=== PATIENT | female | born 1985 | race Caucasian/White ===

== ENCOUNTER 2017-02-10 21:08 | Emergency (ER) | payer MEDICAID ==
[2017-02-10] MEDS ORDERED: TMP/SMZ 160MG/800MG TAB PO ONE (21:32)
--- NOTE | 2017-02-10 21:34 | Emergency Department Record ---
History of Present Illness - General Chief complaint: Bite Insect/other Stated complaint: POSS TICK BITE Time Seen by Provider: 02/10/17 21:26 Source: Patient Mode of Arrival: Ambulatory - History of Present Illness Initial comments: Patient states she felt an itch on her lateral right thigh yesterday afternoon after work. Today she noticed also a red area on the right anterior thigh and soreness in the inguinal region. She denies f,c,n,v,d,ap, joint or muscle aches. She is unsure of her tetanus status. MD complaint: Insect bite/sting Onset/Timin -: Days(s) Patient Tetanus UTD (within 5 yrs): (unsure) Location: RLE Severity scale (1-10): 4 Consistency: Constant Improves with: None Worsens with: Movement Associated symptoms: Denies other symptoms Treatments Prior to Arrival: None - Related Data Home Medications Medication Instructions Recorded Confirmed Last Taken Norethindrone AC-Eth Estradiol 1 tab PO DAILY 02/10/17 02/10/17 02/09/17 [Norethind-Eth Estrad 1-0.02 mg] Previous Rx's Medication Instructions Recorded Sulfamethoxazole/Trimethoprim 1 each PO BID #19 tablet 02/10/17 [Bactrim Ds Tablet] Allergies Allergy/AdvReac Type Severity Reaction Status Date / Time cephalexin monohydrate Allergy HIVES Verified 03/11/15 11:27 [From Keflex] hydrocodone Allergy ITCHING Verified 02/10/17 21:14 amoxicillin AdvReac DIARRHEA Verified 03/11/15 11:27 penicillin AdvReac DIARRHEA Verified 03/11/15 11:27 Travel Screening - Travel/Exposure Within Last 30 Days Have you traveled within the last 30 days?: No - Travel Symptoms Symptom Screening: None Review of Systems Reviewed: No additional complaints except as noted below Constitutional: Reports: As per HPI. Denies: Chills, Fever, Malaise, Night sweats, Weakness, Weight change Eyes: Reports: As per HPI. Denies: Eye discharge, Eye pain, Photophobia, Vision change ENT: Reports: As per HPI. Denies: Congestion, Dental pain, Ear pain, Epistaxis , Hearing loss, Throat pain Respiratory: Reports: As per HPI. Denies: Cough, Dyspnea, Hemoptysis, Stridor, Wheezes Cardiovascular: Reports: As per HPI. Denies: Arrhythmia, Chest pain, Dyspnea on exertion, Edema, Murmurs, Orthopnea, Palpitations, Paroxysmal nocturnal dyspnea, Rheumatic Fever, Syncope Endocrine: Reports: As per HPI. Denies: Fatigue, Heat or cold intolerance, Polydipsia, Polyuria Gastrointestinal: Reports: As per HPI. Denies: Abdominal pain, Constipation, Diarrhea, Hematemesis, Hematochezia, Melena, Nausea, Vomiting Genitourinary: Reports: As per HPI. Denies: Abnormal menses, Discharge, Dyspareunia, Dysuria, Frequency, Hematuria, Incontinence, Retention, Urgency Musculoskeletal: Reports: As per HPI. Denies: Arthralgia, Back pain, Gout, Joint swelling, Myalgia, Neck pain Skin: Reports: As per HPI. Denies: Bruising, Change in color, Change in hair/ nails, Lesions, Pruritus, Rash Neurological: Reports: As per HPI. Denies: Abnormal gait, Confusion, Headache, Numbness, Paresthesias, Seizure, Tingling, Tremors, Vertigo, Weakness Psychiatric: Reports: As per HPI. Denies: Anxiety, Auditory hallucinations, Depression, Homicidal thoughts, Suicidal thoughts, Visual hallucinations Hematological/Lymphatic: Reports: As per HPI. Denies: Anemia, Blood Clots, Easy bleeding, Easy bruising, Swollen glands Past Medical History - SOCIAL HISTORY Smoking Status: Current every day smoker - RESPIRATORY Hx Respiratory Disorders: No - CARDIOVASCULAR Hx Cardio Disorders: No - NEURO Hx Neuro Disorders: No - GI Hx GI Disorders: No - Hx Genitourinary Disorders: No - ENDOCRINE Hx Endocrine Disorders: No - MUSCULOSKELETAL Hx Musculoskeletal Disorders: No - PSYCH Hx Psych Problems: Yes Hx Anxiety: Yes - HEMATOLOGY/ONCOLOGY Hx Hematology/Oncology Disorders: No Family Medical History Any Significant Family History?: Yes Hx Cancer: Grandparents *Diabetes Comment: w/aunts & uncles Physical Exam - General General Appearance: Alert, Oriented x3, Cooperative, No acute distress - Head Head exam: Normal inspection - Eye Eye exam: Normal appearance, PERRL, EOMI. negative: Conjunctival injection, Nystagmus Pupils: Normal accommodation - ENT ENT exam: Normal exam, Mucous membranes moist, Normal external ear exam, Normal orophraynx, TM's normal bilaterally Ear exam: Normal external inspection. negative: External canal tenderness Nasal Exam: Normal inspection. negative: Discharge, Sinus tenderness Mouth exam: Normal external inspection, Tongue normal Teeth exam: Normal inspection. negative: Dental caries Throat exam: Normal inspection. negative: Tonsillar erythema, Tonsillar exudate - Neck Neck exam: Normal inspection, Full ROM. negative: Lymphadenopathy, Meningismus , Tenderness - Respiratory Respiratory exam: Normal lung sounds bilaterally. negative: Chest wall tenderness, Respiratory distress - Cardiovascular Cardiovascular Exam: Regular rate, Normal rhythm, Normal heart sounds - GI/Abdominal GI/Abdominal exam: Soft, Normal bowel sounds, Other (right inguinal tender lymphadenopathy; anterior thigh with beginning erythema which blanches; lateral right thigh with bite site trwo punctures, local induration with no fluctuance and surrounding erythema circumferentially approximately 6" diameter; edges marked with pen.). negative: Tenderness - Rectal Rectal exam: Deferred - exam: Deferred - Extremities Extremities exam: Normal inspection, Full ROM, Normal capillary refill. negative: Calf tenderness, Pedal edema - Back Back exam: Reports: Normal inspection, Full ROM. Denies: Muscle spasm, Rash noted, Tenderness - Neurological Neurological exam: Alert, Normal gait, Oriented X3, Reflexes normal - Psychiatric Psychiatric exam: Normal affect, Normal mood - Skin Skin exam: Dry, Intact, Normal color, Warm Course Vital Signs 02/10/17 21:14 Temperature 98.9 F Pulse Rate [ 96 H Pulse Ox Probe] Respiratory 16 Rate Blood Pressure 118/94 [Left Arm] Pulse Ox 98 - Reevaluation(s) Reevaluation #1: Patient was informed that she may worsen, may need drainage if an abscess forms , and needs to be rechecked. 02/10/17 21:38 Reevaluation #2: Patient states that her allergies to both penicillin and keflex are diarrhea only and NOT rashes, CARLOS, or anaphylaxis. Will give a rocephin shot IM. 02/10/17 21:41 Medical Decision Making - Management Options MDM Management: Additional Work-up Planned (e.g. ADM/Transfer/OP Study) ( Recheck if worsened this weekend.) Disposition Disposition: Discharge Clinical Impression: Spider bite wound Qualifiers: Encounter type: initial encounter Injury intent: accidental or unintentional Qualified Code(s): T63.301A - Toxic effect of unspecified spider venom, accidental (unintentional), initial encounter Disposition: Home, Self-Care Condition: (1) Good Instructions: Insect Bite or Sting (ED) Additional Instructions: Take Bactrim as directed until gone. Recheck here this weekend if worsened in size or if abscess formation. Decrease ambulation, no prolonged standing. Off work 02-11 and 02-12-17. Follow up with PCP as needed. Prescriptions: Sulfamethoxazole/Trimethoprim [Bactrim Ds Tablet] 1 each PO BID #19 tablet Forms: Patient Portal Access
[2017-02-10] MEDS ORDERED: Diph,Pert(Acell),Tet Vac 0.5 ML SYR IM ONE (21:35)
[2017-02-10] MEDS ORDERED: CEFTRIAXONE 1 GRAM VIAL IM ONE (21:41)
== END 2017-02-10 22:12 | disposition home or self-care (01) ==
LOC: ER 21:08
DX: S70.361A Insect bite (nonvenomous), right thigh, initial encounter (principal); W57.XXXA Bitten or stung by nonvenomous insect and other nonvenomous arthropods, initial encounter
CPT/HCPCS: 99283 ×2; 96372; J3490; 90715